=== PATIENT | male | born 1990 | race African-American/Black ===

== ENCOUNTER 2018-07-02 23:22 | Emergency (ER) | payer BC, OTHER ==
[~2018-07-02] VITALS: Ht 177.8 cm; Wt 88.5 kg
[2018-07-02] MEDS ORDERED: IPRATROPIUM NEB FS 0.5 MG/2.5 ML AMPUL.NEB ONE (23:43)
[2018-07-02] MEDS ORDERED: ALBUTEROL FS 2.5 MG/3 ML VIAL.NEB ONE (23:43)
[2018-07-02] MEDS ORDERED: predniSONE 20 MG TABLET ONE (23:50)
[2018-07-03] MEDS ORDERED: predniSONE 20 MG TABLET PO ONE
[2018-07-03] MEDS ORDERED: IPRATROPIUM NEB FS 0.5 MG/2.5 ML AMPUL.NEB NEB ONE
[2018-07-03] MEDS ORDERED: ALBUTEROL FS 2.5 MG/3 ML VIAL.NEB NEB ONE
[2018-07-03 00:48] VITALS: BP 128/88
== END 2018-07-03 00:52 | disposition home or self-care (01) ==
LOC: ER 23:26
DX: J20.9 Acute bronchitis, unspecified (principal)
CPT/HCPCS: 71045-TC